=== PATIENT | male | born 1960 | race American Indian/Alaskan Native ===

== ENCOUNTER 2018-10-20 17:16 | Emergency (ER) | payer BC ==
--- NOTE | 2018-10-20 17:45 | Emergency Department Report ---
Chief Complaint: Extremity Problem,Nontraumatic Stated Complaint: LFT KNEE SWELLING/PAIN Time Seen by Provider: 10/20/18 17:43 - HPI History of Present Illness: pt presents with left knee pain and edema for a couple of weeks no fall or injury never had before no numbness or weakness ambulatory no PMHx no daily meds no allergies to medication (+) smoker 1/2 ppd (+) drinker no drug use MSE screening note: Focused history and physical exam performed. Due to findings the following was ordered: XR left knee ED Disposition for MSE Condition: Stable
[2018-10-20 17:46] VITALS: BP 140/87
--- NOTE | 2018-10-20 18:38 | XRay Report ---
PROCEDURE: XR KNEE 3V LT HISTORY: left knee pain and edema FINDINGS: AP, lateral and oblique views of the left knee were acquired and demonstrate no fracture or malalignment of the left knee. No joint effusion is seen. There is a sharply demarcated, probably-be nign lytic lesion of the anterior distal femoral diaphysis, 3.5 x 1.8 cm. This is not characterized b ut differential diagnostic considerations would include nonossifying fibroma or enchondroma. IMPRESSION: No fracture is seen in the left knee . This document is electronically signed by Elvis Murry MD., October 20 2018 06:36:18 PM ET
--- NOTE | 2018-10-20 21:49 | Emergency Department Report ---
ED Extremity Problem HPI - General Chief complaint: Extremity Problem,Nontraumatic Stated complaint: LFT KNEE SWELLING/PAIN Time Seen by Provider: 10/20/18 17:43 Source: patient Mode of arrival: Ambulatory Limitations: No Limitations - History of Present Illness Initial comments: 58-year-old comes in for intermittent left knee swelling and pain 1 week. Patient denies any injuries. Patient has no past medical history. Pain is a 2/10. MD Complaint: extremity pain, extremity swelling Onset/Timin -: week(s) Location: left, knee History of Same: No -: Yes myalgia, Yes arthralgia Radiation: none Severity scale (0 -10): 2 Consistency: intermittent Improves with: nothing Worsens with: weight bearing Associated Symptoms: denies other symptoms - Related Data Previous Rx's Medication Instructions Recorded Last Taken Type Ibuprofen [Motrin 600 MG tab] 600 mg PO Q8H PRN #21 tablet 10/20/18 Unknown Rx Allergies Allergy/AdvReac Type Severity Reaction Status Date / Time No Known Allergies Allergy Verified 10/20/18 17:18 ED Review of Systems ROS: Stated complaint: LFT KNEE SWELLING/PAIN Other details as noted in HPI Comment: All other systems reviewed and negative Musculoskeletal: joint swelling, arthralgia ED Past Medical Hx - Past Medical History Previous Medical History?: No - Surgical History Past Surgical History?: No - Social History Smoking Status: Current Every Day Smoker Substance Use Type: Alcohol - Medications Home Medications: Home Medications Medication Instructions Recorded Confirmed Last Taken Type Ibuprofen [Motrin 600 MG tab] 600 mg PO Q8H PRN #21 tablet 10/20/18 Unknown Rx ED Physical Exam - General Limitations: No Limitations General appearance: alert, in no apparent distress - Head Head exam: Present: atraumatic, normocephalic - ENT ENT exam: Present: mucous membranes moist - Extremities Exam Extremities exam: Present: full ROM. Absent: tenderness - Expanded Lower Extremity Exam Left Hip exam: Present: normal inspection Knee exam: Present: full ROM, swelling. Absent: tenderness Lower Leg exam: Present: normal inspection - Back Exam Back exam: Present: normal inspection - Neurological Exam Neurological exam: Present: alert, oriented X3 - Psychiatric Psychiatric exam: Present: normal affect, normal mood - Skin Skin exam: Present: warm, dry, intact, normal color. Absent: rash ED Course Vital Signs 10/20/18 10/20/18 17:43 22:24 Temperature 98.0 F Pulse Rate 72 56 L Respiratory 19 17 Rate Blood Pressure 140/87 [Left] O2 Sat by Pulse 98 99 Oximetry ED Medical Decision Making - Radiology Data Radiology results: report reviewed Patient: SANDRO SIMON MR#: [id number] : 1960 Acct:[id number] Age/Sex: 57 / M ADM Date: 10/20/18 Loc: ED Attending Dr: Ordering Physician: DIONISIO JAMA Date of Service: 10/20/18 Procedure(s): XR knee 3V LT Accession Number(s): [id number] cc: DIONISIO JAMA Fluoro Time In Minutes: PROCEDURE: XR KNEE 3V LT HISTORY: left knee pain and edema FINDINGS: AP, lateral and oblique views of the left knee were acquired and demonstrate no fracture or malalignment of the left knee. No joint effusion is seen. There is a sharply demarcated, probably-benign lytic lesion of the anterior distal femoral diaphysis, 3.5 x 1.8 cm. This is not characterized but differential diagnostic considerations would include nonossifying fibroma or enchondroma. IMPRESSION: No fracture is seen in the left knee . This document is electronically signed by Elvis Murry MD., October 20 2018 06:36:18 PM ET Transcribed By: JJ Dictated By: ELVIS MURRY MD Electronically Authenticated By: ELVIS MURRY MD Signed Date/Time: 10/20/181837 DD/ 16 TD/TT: 10/20/181816 - Medical Decision Making 58-year-old male comes in for intermittent left knee swelling and pain 1 week. Patient was discharged home with a referral to orthopedic provider and NSAIDs. Critical care attestation.: If time is entered above; I have spent that time in minutes in the direct care of this critically ill patient, excluding procedure time. ED Disposition Clinical Impression: Right knee pain Disposition: DC-01 TO HOME OR SELFCARE Is pt being admited?: No Does the pt Need Aspirin: No Condition: Stable Instructions: Knee Pain (ED), Arthralgia (ED) Additional Instructions: Please take pain medication as prescribed. It is very important for follow-up with an orthopedic provider I have listed one below for your convenience. Prescriptions: Ibuprofen [Motrin 600 MG tab] 600 mg PO Q8H PRN #21 tablet PRN Reason: Pain Referrals: EDA ZUNIGA MD [Primary Care Provider] - 3-5 Days ANTONIO ASHER MD [Staff Physician] - 3-5 Days
== END 2018-10-20 22:24 | disposition home or self-care (01) ==
LOC: ED 17:16
DX: M25.562 Pain in left knee (principal); F17.200 Nicotine dependence, unspecified, uncomplicated
CPT/HCPCS: 99283

== ENCOUNTER 2021-05-20 23:49 | Emergency (ER) | payer SELFPAY ==
--- NOTE | 2021-05-21 00:33 | Emergency Department Report ---
ED General Adult HPI - General Chief complaint: Extremity Injury, Lower Stated complaint: FOOT PAIN/SWELLING PUI?: No Time Seen by Provider: 05/21/21 00:05 Source: patient Mode of arrival: Ambulatory Limitations: No Limitations - History of Present Illness Initial comments: 60-year-old -[place]aro[place] male with no significant past medical history complains of 1 to 2-week history of swelling and redness to his right foot of un known etiology which has been progressively worsening since the onset. Area is dull throbbing pain with skin rash steps become broken with some scant discharge. He has been having to use paper towels to bleach the area and keep the wound dry. Reports no fever, chills, sweats no numbness, no tingling. -: Gradual Radiation: non-radiation Quality: dull Consistency: constant Improves with: none Worsens with: none Associated Symptoms: denies other symptoms. denies: chest pain, cough, headaches, loss of appetite, malaise, nausea/vomiting, shortness of breath, syncope, weakness Treatments Prior to Arrival: none - Related Data Previous Rx's Medication Instructions Recorded Last Taken Type Ibuprofen [Motrin 600 MG tab] 600 mg PO Q8H PRN #21 tablet 10/20/18 Unknown Rx Ciclopirox 0.77% (Nf) [Loprox 1 applic TP BID #1 tube 05/21/21 Unknown Rx 0.77% (Nf)] Ketorolac [Toradol] 10 mg PO Q6H PRN #15 tablet 05/21/21 Unknown Rx Sulfamethoxazole/Trimethoprim 1 each PO BID #20 tablet 05/21/21 Unknown Rx [Bactrim DS TAB] cephALEXin [Keflex] 500 mg PO Q8HR #30 cap 05/21/21 Unknown Rx Allergies Allergy/AdvReac Type Severity Reaction Status Date / Time No Known Allergies Allergy Verified 05/20/21 23:55 ED Review of Systems ROS: Stated complaint: FOOT PAIN/SWELLING Other details as noted in HPI Comment: All other systems reviewed and negative ED Past Medical Hx - Past Medical History Previous Medical History?: No - Surgical History Past Surgical History?: No - Social History Smoking Status: Current Every Day Smoker Substance Use Type: Alcohol - Medications Home Medications: Home Medications Medication Instructions Recorded Confirmed Last Taken Type Ibuprofen [Motrin 600 MG tab] 600 mg PO Q8H PRN #21 tablet 10/20/18 Unknown Rx Ciclopirox 0.77% (Nf) [Loprox 1 applic TP BID #1 tube 05/21/21 Unknown Rx 0.77% (Nf)] Ketorolac [Toradol] 10 mg PO Q6H PRN #15 tablet 05/21/21 Unknown Rx Sulfamethoxazole/Trimethoprim 1 each PO BID #20 tablet 05/21/21 Unknown Rx [Bactrim DS TAB] cephALEXin [Keflex] 500 mg PO Q8HR #30 cap 05/21/21 Unknown Rx ED Physical Exam - General Limitations: No Limitations General appearance: alert, in no apparent distress - Head Head exam: Present: atraumatic, normocephalic - Eye Eye exam: Present: normal appearance, PERRL, EOMI Pupils: Present: normal accommodation - ENT ENT exam: Present: normal exam, normal orophraynx, mucous membranes moist - Neck Neck exam: Present: normal inspection - Respiratory Respiratory exam: Present: normal lung sounds bilaterally. Absent: respiratory distress - Cardiovascular Cardiovascular Exam: Present: regular rate, normal rhythm. Absent: systolic murmur, diastolic murmur, rubs, gallop - GI/Abdominal GI/Abdominal exam: Present: soft, normal bowel sounds - Rectal Rectal exam: Present: deferred - Extremities Exam Extremities exam: Present: normal inspection, tenderness - Expanded Lower Extremity Exam Right Foot/Toe exam: Present: tenderness, swelling, erythema Neuro vascular tendon exam: Present: no vascular compromise 1 - Erythematous rash-like area with swelling and tenderness. Excoriations noted with tinea pedis present with some secondary cellulitis. - Back Exam Back exam: Present: normal inspection - Neurological Exam Neurological exam: Present: alert, oriented X3 - Psychiatric Psychiatric exam: Present: normal affect, normal mood - Skin Skin exam: Present: warm, dry, intact, normal color. Absent: rash ED Course Vital Signs 05/20/21 23:52 Temperature 98.2 F Pulse Rate 82 Respiratory 18 Rate Blood Pressure 158/103 [Right] O2 Sat by Pulse 97 Oximetry ED Medical Decision Making - Lab Data Result diagrams: 05/21/21 01:19 05/21/21 01:19 Lab Results 05/21/21 05/21/21 Range/Units 01:19 01:19 WBC 5.8 (4.5-11.0) K/mm3 RBC 5.02 (3.65-5.03) M/mm3 Hgb 14.7 (11.8-15.2) gm/dl Hct 45.5 (35.5-45.6) % MCV 91 (84-94) fl MCH 29 (28-32) pg MCHC 32 (32-34) % RDW 13.6 (13.2-15.2) % Plt Count 232 (140-440) K/mm3 Rice % (Auto) Vamp Strap Ironer Sodium 138 (137-145) mmol/L Potassium 4.6 (3.6-5.0) mmol/L Chloride 99.4 (98-107) mmol/L Carbon Dioxide 26 (22-30) mmol/L Anion Gap 17 mmol/L BUN 8 L (9-20) mg/dL Creatinine 0.8 (0.8-1.3) mg/dL Estimated GFR > 60 ml/min BUN/Creatinine Ratio 10 % Glucose 95 (75-100) mg/dL Calcium 10.2 (8.4-10.2) mg/dL - Radiology Data Radiology results: [place] [address] XRay Report Signed Patient: SANDRO SIMON MR#: [id number] : 1960 Acct:[id number] Age/Sex: 60 / M ADM Date: 05/20/21 Loc: ED Attending Dr: Ordering Physician: DIONISIO SHAH Date of Service: 05/21/21 Procedure(s): XR foot 3+V RT Accession Number(s): [id number] cc: DIONISIO SHAH Fluoro Time In Minutes: RIGHT FOOT 3 VIEWS INDICATION / CLINICAL INFORMATION: Right foot pain and swelling. COMPARISON: None available. FINDINGS: BONES / JOINT(S): There are mild degenerative changes involving the first metatarsophalangeal joint and the dorsum of the midfoot. I see no evidence of acute fracture, subluxation or destructive lesion. SOFT TISSUES: There is mild to moderate soft tissue swelling involving the dorsum of the foot. ADDITIONAL FINDINGS: None. Signer Name: Devin Michelle MD Signed: 05/21/2021 1:19 AM Workstation Name: [id number] Transcribed By: RT Dictated By: Devin Michelle MD Electronically Authenticated By: Devin Michelle MD Signed Date/Time: 05/21/21118 DD/ 7 TD/TT: - Medical Decision Making 60-year-old [place] male with swollen foot x-rays did not support any possibility of overt osteomyelitis radiology cellulitis infection treated with antibiotics and antifungal advised to follow-up in 2 to 4 days for wound reevaluation. Laboratory data was essentially benign Critical care attestation.: If time is entered above; I have spent that time in minutes in the direct care of this critically ill patient, excluding procedure time. ED Disposition Clinical Impression: Cellulitis of foot, Tinea pedis Disposition: 01 HOME / SELF CARE / HOMELESS Is pt being admited?: No Does the pt Need Aspirin: No Condition: Stable Instructions: Cellulitis, Adult, Athlete's Foot, [id number], Athlete's Foot
--- NOTE | 2021-05-21 01:23 | XRay Report ---
RIGHT FOOT 3 VIEWS INDICATION / CLINICAL INFORMATION: Right foot pain and swelling. COMPARISON: None available. FINDINGS: BONES / JOINT(S): There are mild degenerative changes involving the first metatarsophalangeal joint a nd the dorsum of the midfoot. I see no evidence of acute fracture, subluxation or destructive lesion. SOFT TISSUES: There is mild to moderate soft tissue swelling involving the dorsum of the foot. ADDITIONAL FINDINGS: None. Signer Name: Devin Michelle MD Signed: 05/21/2021 1:19 AM Workstation Name: [id number]
[2021-05-21 01:39] LABS: Hematocrit 45.5 % (35.5-45.6); Hemoglobin 14.7 gm/dl (11.8-15.2); Mean Corpuscular HGB Conc 32 % (32-34); Mean Corpuscular Volume 91 fl (84-94); Platelet Count 232 K/mm3 (140-440); Red Blood Count 5.02 M/mm3 (3.65-5.03); Red Cell Distribution Width 13.6 % (13.2-15.2)
[2021-05-21 01:47] LABS: BUN/Creatinine Ratio 10; Blood Urea Nitrogen 8 mg/dL (9-20); Calcium 10.2 mg/dL (8.4-10.2); Hemolysis Index 48
[2021-05-21 02:47] LABS: RBC Morphology Normal; Total Cells Counted 100
[2021-05-21 02:57] VITALS: BP 159/88
== END 2021-05-21 03:00 | disposition home or self-care (01) ==
LOC: ED 23:49
DX: L03.115 Cellulitis of right lower limb (principal); B35.3 Tinea pedis; F17.200 Nicotine dependence, unspecified, uncomplicated
CPT/HCPCS: 36415; 80048; 85007; 85025; 99283